=== PATIENT | female | born 1965 | race Caucasian/White ===

== ENCOUNTER 2024-12-07 15:03 | Outpatient (CLI) | payer OTHER | END 2024-12-07 15:04 | disposition home or self-care (01) | LOC: CSHMAMMO 15:03 | PROVIDERS: ATTEND Internal Medicine | DX: Z12.31 Encounter for screening mammogram for malignant neoplasm of breast (principal); Z78.0 Asymptomatic menopausal state; Z91.89 Other specified personal risk factors, not elsewhere classified | CPT/HCPCS: 77063; 77067; 77080 ==